=== PATIENT | female | born 1965 | race Caucasian/White ===

== ENCOUNTER 2018-09-04 08:48 | Day surgery (SDC) | payer BC ==
[~2018-09-04 08:48] MED LIST: PROPOFOL 500 MG/50 ML EMU IV ONE
[2018-09-04] MEDS ORDERED: PROPOFOL 10 MG/ML 200 MG/20 ML EMU IV ONE (10:02)
[2018-09-04] MEDS ORDERED: ONDANSETRON HCL 4 MG/2 ML SOL ONE (10:12)
[2018-09-04 10:16] VITALS: TEMP 98.1
[2018-09-04 10:29] VITALS: RESP 18
[2018-09-04 10:47] VITALS: BP 106/73; PULSE 66; O2SAT 98
== END 2018-09-04 11:10 | disposition home or self-care (01) ==
LOC: SURG 08:48
PROVIDERS: ATTEND Surgery
DX: Z12.11 Encounter for screening for malignant neoplasm of colon (principal); D12.8 Benign neoplasm of rectum
CPT/HCPCS: 99001; J2405; J2704